=== PATIENT | male | born 1980 | race African-American/Black ===

== ENCOUNTER 2022-11-18 10:50 | Emergency (ER) | payer MEDICAID, SELFPAY ==
[2022-11-18 10:52] VITALS: BP 151/88; PULSE 100; RESP 18; TEMP 36.5; O2SAT 100
[2022-11-18 11:28] LABS: Appearance Urine Cloudy (Clear); Bacteria Urine None Seen /hpf; Bilirubin Urine Negative (Negative); Blood Urine Negative (Negative); Color Urine Yellow (Yellow); Glucose Urine UA Negative (Negative); Ketones Urine 1+ mg/dL (Negative); Leukocyte Esterase Ur Negative LEU/UL (Negative); Nitrate Urine Negative (Negative); Non Pathogenic Casts 0-2; Protein Urine Negative (Negative); RBC Urine 0-2 /hpf (0-2); Specific Grav Ur 1.012 (1.001-1.035); Squamous Epithelial Cell Urine None seen /hpf (Few); WBC Urine 0-5 /hpf; pH Urine 7.5 (5.0-9.0)
[2022-11-18 11:34] LABS: Add Urine Microscopic? YES
--- NOTE | 2022-11-18 11:42 | ED.GENADULT ---
HPI - General Adult General Chief complaint: Unspecified Stated complaint: abd issues Time Seen by Provider: 11/18/22 10:56 History of Present Illness HPI narrative: Patient is a 42-year-old male who presents ER due to waking up with wet pants. Reports he is unsure why but his pants were wet when he woke up this morning. He reports he did drink 1/5 of was a Shant last night. He does not believe that he urinated himself. He reports that he had bilateral inguinal hernias that bulge and he is concerned that may be leaking. He has no pain in the area. Denies fevers or chills or sweats. No history of seizures. No pain to his tongue. No additional complaints. Related Data Allergies Allergy/AdvReac Type Severity Reaction Status Date / Time No Known Allergies Allergy Verified 11/18/22 10:58 Review of Systems Review of Systems: All systems reviewed & are unremarkable except as noted in HPI and below Constitutional: Constitutional: Denies chills and Denies fever(s) Gastrointestinal: Gastrointestinal: Denies abdominal pain, Denies bloating, Denies diarrhea, Denies nausea and Denies vomiting Genitourinary: Genitourinary: Denies dysuria, Denies scrotal swelling, Denies testicular pain and Reports urinary incontinence [facility] Past Medical History Medical History (Updated 11/18/22 @ 11:47 by Rodriguez Rondon MD) Healthy adult male Surgical History Surgical History (Updated 11/18/22 @ 11:44 by Rodriguez Rondon MD) No history of previous surgery Exam Narrative: GENERAL: Well-appearing, well-nourished, and in no acute distress. HEAD: Normocephalic, atraumatic. EYES: PERRL and EOMI. ENT: Mucous membranes moist. CHEST: Clear to auscultation. No respiratory distress. HEART: Regular rate and rhythm. Normal peripheral pulses. ABDOMEN: Soft, nontender, nondistended. : Normal-appearing penis without discharge from urethral meatus. Testicles normal and nontender. Reducible inguinal hernia on the last no apparent hernia on the right. EXTREMITIES: Normal range of motion. No edema. NEURO: Alert and oriented x3. PSYCH: Normal mood and affect. Course Course Emergency Course: Patient likely had urinary incontinence while he was asleep. No evidence of weeping cyst or abscess on exam. Patient able to void without issue. Discharge. Vital Signs Vital signs: Vital Signs Temperature 97.7 F 11/18/22 10:52 Pulse Rate 100 11/18/22 10:52 Respiratory Rate 18 11/18/22 10:52 Blood Pressure 151/88 H 11/18/22 10:52 Pulse Oximetry 100 11/18/22 10:52 Oxygen Delivery Room Air 11/18/22 10:52 Temperature 97.7 F 11/18/22 10:52 Pulse Rate 100 11/18/22 10:52 Respiratory Rate 18 11/18/22 10:52 Blood Pressure 151/88 H 11/18/22 10:52 Pulse Oximetry 100 11/18/22 10:52 Oxygen Delivery Room Air 11/18/22 10:52 Medical Decision Making Vital Signs Vital Signs: Vital Signs Temperature 97.7 F 11/18/22 10:52 Pulse Rate 100 11/18/22 10:52 Respiratory Rate 18 11/18/22 10:52 Blood Pressure 151/88 H 11/18/22 10:52 Pulse Oximetry 100 11/18/22 10:52 Oxygen Delivery Room Air 11/18/22 10:52 Temperature 97.7 F 11/18/22 10:52 Pulse Rate 100 11/18/22 10:52 Respiratory Rate 18 11/18/22 10:52 Blood Pressure 151/88 H 11/18/22 10:52 Pulse Oximetry 100 11/18/22 10:52 Oxygen Delivery Room Air 11/18/22 10:52 Lab Data Labs: Lab Results 11/18/22 Range/Units 11:18 Urine Color Yellow (Yellow) Urine Appearance Cloudy H (Clear) Urine pH 7.5 (5.0-9.0) Ur Specific [place] 1.012 (1.001-1.035) Urine Protein Negative (Negative) mg/dL Urine Glucose (UA) Negative (Negative) mg/dL Urine Ketones 1+ H (Negative) mg/dL Ur Blood (Man) Negative (Negative) Urine Nitrate Negative (Negative) Urine Bilirubin Negative (Negative) Urine Urobilinogen 1.0 (<2.0) mg/dL Leukocyte Esterase Rfl Negative (Negative) DISHA/UL Urine R
== END 2022-11-18 11:54 | disposition home or self-care (01) ==
PROVIDERS: Emergency Provider Emergency Medicine
DX: R32 Unspecified urinary incontinence (principal)
CPT/HCPCS: 81001; 99283